=== PATIENT | male | born 1975 | race Caucasian/White ===

== ENCOUNTER 2018-10-05 19:01 | Emergency (ER) | payer BC ==
[~2018-10-05] VITALS: Ht 185.4 cm; Wt 106.6 kg
--- OUTSIDE RECORDS SUMMARY | 2018-10-05 19:04 | XMS REPORT | Clinical Summary ---
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 Active ibuprofen (ADVIL,MOTRIN) Take 200 mg 0 200 MG tablet by mouth every 6 (six) hours as needed for mild pain. Active ondansetron (ZOFRAN, Take 1 tablet 20 tablet 0 HYDROCHLORIDE,) 4 MG (4 mg total) 8 tabletIndications: by mouth Rupture of left distal every 8 biceps tendon, subsequent (eight) hours encounter as needed for nausea or vomiting. 01/02/2018 Discontinued HYDROcodone-acetaminophen Take 1 tablet 30 tablet 0 (NORCO) 5-325 mg per by mouth 8 tabletIndications: Left every 6 (six) upper arm pain hours as needed for moderate pain for up to 7 days. Max Daily Amount: 4 tablets 01/04/2018 HYDROcodone-acetaminophen Take 1 tablet 60 tablet 0 (NORCO) 5-325 mg per by mouth 8 tabletIndications: every 6 (six) Rupture of left distal hours as biceps tendon, subsequent needed for encounter moderate pain for up to 7 days. Max Daily Amount: 4 tablets Active Problems Problem Noted Date Left elbow pain 12/25/2017 Rupture of left distal biceps tendon 12/25/2017 Encounters Care Team Description Date Type Specialty Denis Cross MD Rupture of left distal biceps tendon, subsequent encounter (Primary Dx) 01/11/2018 Office Visit Orthopedic Surgery Denis Cross MD LEFT DISTAL BICEPS TENDON REPAIR 01/02/2018 Surgery General Surgery Presley Sullivan MD 01/02/2018 Anesthesia General Surgery Event Denis Cross MD Preop testing; Left upper arm pain 01/02/2018 Hospital General Surgery Encounter Denis Cross MD Preop testing (Primary Dx) 01/01/2018 Pre-Admit Pre-Admission Testing Testing Appointment Denis Cross MD 01/01/2018 Hospital Radiology Encounter Denis Cross MD Rupture of left distal biceps tendon, subsequent encounter (Primary Dx) 12/28/2017 Office Visit Orthopedic Surgery Denis Cross MD Left upper arm pain 12/27/2017 Hospital Radiology Encounter Denis Cross MD Left upper arm pain (Primary Dx); Left elbow pain; Rupture of left distal biceps tendon, initial encounter 12/25/2017 Office Visit Orthopedic Surgery after 10/04/2017 Family History Medical History Relation Name Comments Heart attack Father No Known Problems Mother Relation Name Status Comments Father Mother Alive Social History Date Tobacco Use Types Packs/Day Years Used Current Every Day Smoker Cigarettes 0.5 2 Smokeless Tobacco: Never Used Tobacco Cessation: Ready to Quit: Yes; Counseling Given: Yes Alcohol Use Drinks/Week oz/Week Comments Yes 7 + Sex Assigned at Date Recorded Not on file Industry Job Start Date Occupation Not on file Not on file Not on file Travel End Travel History Travel Start No recent travel history available. Last Filed Vital Signs Time Taken Vital Sign Reading 01/11/2018 9:58 AM [facility] Blood Pressure 122/80 01/11/2018 9:58 AM [facility] Pulse 80 01/02/2018 9:38 AM [facility] Temperature 36.6 C (97.8 F) 01/02/2018 10:45 AM [facility] Respiratory Rate 18 01/02/2018 10:45 AM [facility] Oxygen Saturation 95% - Inhaled Oxygen - Concentration 01/11/2018 9:58 AM [facility] Weight 104 kg (230 lb) 01/11/2018 9:58 AM [facility] Height 188 cm (6' 2") 01/11/2018 9:58 AM [facility] Body Mass Index 29.53 Plan of Treatment Health Maintenance Due Date Last Done Comments MMR VACCINES (1 of - 1974 Standard series) VARICELLA VACCINES (1 of 1986 2 - 2-dose adolescent series) INFLUENZA VACCINE 06/13/2018 HEPATITIS B VACCINES Aged Out No longer eligible based on patient's age to complete this topic IPV VACCINES Aged Out No longer eligible based on patient's age to complete this topic MENINGOCOCCAL VACCINE Aged Out No longer eligible based on patient's age to complete this topic Implants Device Identifier Shelf Expiration Date Model / Serial / Lot Implanted Type Area Manufactur er [place] [id number] / / [id number] Biocomposite Distal Biceps Kit - IPM Left: Arm ARTHREX [id number] IMPLANT [employer] Implanted: Qty: 1 on 01/02/2018 by Denis Crawford MD Procedures Comments Procedure Name Priority Date/Time Associated Diagnosis XR ELBOW 2 VW LEFT Routine 01/02/2018 9:11 AM [facility] [place] > 1 HOUR Routine 01/02/2018 9:01 AM [facility] SD AN ELECTIVE Routine 01/02/2018 SUPRAGLOTTIC AIRWAY 7:41 AM [facility] Procedure Note - Walt Stovall - 01/02/2018 7:41 AM [facility] Airway Date/Time: 01/02/2018 7:20 AM Performed by: WALT STOVALL Authorized by: PRESLEY SULLIVAN Location: OR Urgency: Elective Difficult Airway: No Resident/C RNA/AA: WALT STOVALL Performed by: resident/C RNA/AA Preoxygena levy with 100% O2: Yes Mask Ventilatio n: Not attempted Final Airway Type: Supraglott ic airway Final LMA: Unique LMA Size: 5 Number of Attempts at Approach: 1 REPAIR, TENDON, BICEPS 01/02/2018 Rupture of left distal 7:15 AM [facility] biceps tendon Case Notes FAX Special Needs ARTHREX, HAND TABLE, SUPINE POSITION, C-ARMAARON WITH ARTHREX NOTIFIED OF CASE 12/29/2017 Jenni rothman message about time change to 0715 12/29/17 [address] [place] AN PERIPHERAL BLOCK Routine 01/02/2018 POST-OP PAIN 7:04 AM [facility] Procedure Note - Presley Sullivan MD - 01/02/2018 7:04 AM [facility] Left supraclavi cular block Performed by: PRESLEY SULLIVAN Authorized by: PRESLEY SULLIVAN Patient Location: Holding area Start Time: 01/02/2018 6:55 AM End Time: 01/02/2018 7:02 AM Reason for Block: at surgeon's request, post-op pain management Staff: Anesthesio logist: PRESLEY SULLIVAN Preprocedu re: patient identified , IV checked, site and side verified, risks and benefits discussed, procedure verified, surgical consent complete, patient position confirmed, monitors and equipment checked, pre-op evaluation complete and site marked Time Out Performed: 01/02/2018 6:55 AM Peripheral Nerve Block: Patient Position: Supine Prep: ChloraPrep Monitoring : Blood pressure monitoring , continuous pulse oximetry and heart rate Block Type: Brachial plexus and supraclavi cular Laterality : Left Injection Technique: Single injection Procedures : ultrasound guided and nerve stimulator Local Infiltrati on (See MAR for details): Ropivacain e Loss of Twitch: 0.6 mA Needle: Needle Type: SonoPlex Needle Gauge: 22 G Needle Length: 2 in Assessment : Injection Assessment : Visualized needle/loc al anesthetic surroundin g nerve, visualized pertinent vascular structures and nerves, needle tip visualized at all times during injection of medication , intermitte nt aspiration during local anesthetic administra tion and no symptoms of intraneura l/intraven ous injection Paresthesi a Pain: None Heart Rate Change: No Slow Fractionat ed Injection: Yes Block outcome: No apparent complicati ons, patient comfortabl e and patient tolerated procedure well Notes: Versed 2 mg and Fentanyl 100 mcg IV for nerve block XR CHEST 2 VW Routine 01/01/2018 Preop testing 4:22 PM [facility] ECG 12-LEAD Routine 01/01/2018 Preop testing 4:08 PM [facility] ZZESTIMATED GFR Routine 01/01/2018 3:37 PM [facility] URINALYSIS SCREEN AND Routine 01/01/2018 Preop testing MICROSCOPY, WITH REFLEX 3:37 PM [facility] TO CULTURE BASIC METABOLIC PANEL Routine 01/01/2018 Preop testing 3:37 PM [facility] CBC HEMOGRAM Routine 01/01/2018 Preop testing 3:37 PM [facility] MRI UPPER EXTREMITY JOINT Routine 12/27/2017 Left upper arm pain WO CONTRAST LEFT 6:29 PM [facility] after 10/04/2017 Results * XR Elbow 2 Vw Left (01/02/2018 9:11 AM [facility]) Narrative Performed At EXAMINATION:XR ELBOW 2 VW LEFT [facility] CLINICAL HISTORY:Pain COMPARISON:None. IMPRESSION: Intraoperative views of the left elbow are obtained. Patient is undergoing surgical repair a ruptured biceps tendon. Fixation screws in place Bony Structures are within normal limits [id number] Procedure Note Hm Interface, Radiology Results Incoming - 01/02/2018 9:16 AM [facility] EXAMINATION: XR ELBOW 2 VW LEFT CLINICAL HISTORY: Pain COMPARISON: None. IMPRESSION: Intraoperative views of the left elbow are obtained. Patient is undergoing surgical repair a ruptured biceps tendon. Fixation screws in place Bony Structures are within normal limits [id number] Performing Organization Address [facility] Phone Number [facility] [address] [place] [address] * OR [place] > I Hour (01/02/2018 9:01 AM [facility]) Narrative Performed At EXAMINATION:OR FL 1 HOUR HM [facility] C-arm fluoroscopy was requested in OR.FLUORO TIME 0:32 IMPRESSION: Separate operative report will be issued by the physician performing the procedure. [id number] Procedure Note Interface, Radiology Results Incoming - 01/02/2018 9:27 AM [facility] EXAMINATION: OR FL 1 HOUR C-arm fluoroscopy was requested in OR. FLUORO TIME 0:32 IMPRESSION: Separate operative report will be issued by the physician performing the procedure. [id number] Performing Organization Address [facility] Phone Number [facility] [address] [place] [address] * XR Chest 2 Vw (01/01/2018 4:22 PM [facility]) Narrative Performed At EXAMINATION:XR CHEST 2 VW HM [facility] CLINICAL HISTORY:Z01.818 Encounter for other preprocedural examination, preop COMPARISON:None. IMPRESSION: Frontal and lateral views reveal a normal cardiomediastinal silhouette. Lungs are clear. Pleural margins are sharp. The remainder of the examination is unremarkable. [id number] Procedure Note Interface, Radiology Results Incoming - 01/01/2018 4:35 PM [facility] EXAMINATION: XR CHEST 2 VW CLINICAL HISTORY: Z01.818 Encounter for other preprocedural examination, preop COMPARISON: None. IMPRESSION: Frontal and lateral views reveal a normal cardiomediastinal silhouette. Lungs are clear. Pleural margins are sharp. The remainder of the examination is unremarkable. [id number] Performing Organization Address [facility] Phone Number [facility] [address] [place] [address] * ECG 12 lead (01/01/2018 4:08 PM [facility]) Ventricular rate 68 [facility] Atrial rate 68 [facility] SD interval 154 [facility] QRSD interval 98 [facility] QT interval 380 [facility] QTC interval 404 [facility] P axis 1 44 [facility] QRS axis 1 59 [facility] T wave axis 32 [facility] EKG impression Normal sinus rhythm-Normal [facility] MUSE ECG-No previous ECGs available- Performing Organization Address [facility] Phone Number [facility] [address] [place] [address] * Urinalysis screen and microscopy, with reflex to culture (01/01/2018 3:37 PM [facility]) Specimen site Clean catch [facility] DEPARTMENT OF PATHOLOGY AND GENOMIC MEDICINE Color, UA Yellow [facility] DEPARTMENT OF PATHOLOGY AND GENOMIC MEDICINE Appearance, UA Clear [facility] DEPARTMENT OF PATHOLOGY AND GENOMIC MEDICINE Specific gravity, UA 1.017 1.001 - 1.035 [facility] DEPARTMENT OF PATHOLOGY AND GENOMIC MEDICINE pH, UA 6.0 5.0 - 8.5 [facility] DEPARTMENT OF PATHOLOGY AND GENOMIC MEDICINE Protein, UA Negative Negative [facility] DEPARTMENT OF PATHOLOGY AND GENOMIC MEDICINE Glucose, UA Negative Negative [facility] DEPARTMENT OF PATHOLOGY AND GENOMIC MEDICINE Ketones, UA Negative Negative [facility] DEPARTMENT OF PATHOLOGY AND GENOMIC MEDICINE Bilirubin, UA Negative Negative [facility] DEPARTMENT OF PATHOLOGY AND GENOMIC MEDICINE Blood, UA Moderate (A) Negative [facility] DEPARTMENT OF PATHOLOGY AND GENOMIC MEDICINE Nitrite, UA Negative Negative [facility] DEPARTMENT OF PATHOLOGY AND GENOMIC MEDICINE Urobilinogen, UA Negative <2.0 [facility] DEPARTMENT OF PATHOLOGY AND GENOMIC MEDICINE Leukocyte esterase, UA Negative Negative [facility] DEPARTMENT OF PATHOLOGY AND GENOMIC MEDICINE WBC, UA None seen 0 - 1 /HPF [facility] DEPARTMENT OF PATHOLOGY AND GENOMIC MEDICINE RBC, UA 0-5 0 - 1 /HPF [facility] DEPARTMENT OF PATHOLOGY AND GENOMIC MEDICINE Bacteria, UA Trace None seen [facility] DEPARTMENT OF PATHOLOGY AND GENOMIC MEDICINE Yeast, UA None seen [facility] DEPARTMENT OF PATHOLOGY AND GENOMIC MEDICINE Yeast with pseudohyphae, None seen [facility] PATHOLOGY AND GENOMIC MEDICINE Specimen Urine Performing Organization Address [facility] Phone Number [address] [place] [phone] PATHOLOGY AND GENOMIC MEDICINE * Estimated GFR (01/01/2018 3:37 PM [facility]) GFR Non Af Amer 73 mL/min/1.73 m2 [facility] DEPARTMENT OF PATHOLOGY AND GENOMIC MEDICINE GFR Af Amer 88 mL/min/1.73 m2 [facility] DEPARTMENT OF Comment: PATHOLOGY AND Chronic kidney disease: <60 GENOMIC MEDICINE mL/min/1.73m2 Kidney failure: <15 mL/min/1.73m2 The estimated GFR is calculated from the IDMS-traceable Modification of Diet in Renal Disease Equation. The accuracy of the calculation is poor when the creatinine is normal. Calculated values >90 mL/min/1.73m2 are not reported. This equation has not been validated in children (<18 years), women, the elderly (>70 years), or ethnic groups other than Caucasians and Americans. Specimen Plasma specimen Performing Organization Address [facility] Phone Number [address] [place] [address] PATHOLOGY AND [facility] * CBC hemogram (01/01/2018 3:37 PM [facility]) WBC 6.03 4.50 - 11.00 k/uL [facility] DEPARTMENT OF PATHOLOGY AND GENOMIC MEDICINE RBC 5.41 4.40 - 6.00 m/uL [facility] DEPARTMENT OF PATHOLOGY AND GENOMIC MEDICINE HGB 15.7 14.0 - 18.0 g/dL [facility] DEPARTMENT OF PATHOLOGY AND GENOMIC MEDICINE HCT 47.3 41.0 - 51.0 % [facility] DEPARTMENT OF PATHOLOGY AND GENOMIC MEDICINE MCV 87.4 82.0 - 100.0 fL [facility] DEPARTMENT OF PATHOLOGY AND GENOMIC MEDICINE MCH 29.0 27.0 - 34.0 pg [facility] DEPARTMENT OF PATHOLOGY AND GENOMIC MEDICINE MCHC 33.2 31.0 - 37.0 g/dL [facility] DEPARTMENT OF PATHOLOGY AND GENOMIC MEDICINE RDW - SD 45.0 37.0 - 55.0 fL [facility] DEPARTMENT OF PATHOLOGY AND GENOMIC MEDICINE MPV 11.5 8.8 - 13.2 fL [facility] DEPARTMENT OF PATHOLOGY AND GENOMIC MEDICINE Platelet count 253 150 - 400 k/uL [facility] DEPARTMENT OF PATHOLOGY AND GENOMIC MEDICINE Nucleated RBC 0.00 /100 WBC [facility] PATHOLOGY AND [facility] MEDICINE Specimen Blood Performing Organization Address [facility]/Zipcode Phone Number [facility] [address] [place] [address] PATHOLOGY AND [facility] * Basic metabolic panel (01/01/2018 3:37 PM [facility]) Sodium 141 135 - 148 mEq/L [facility] DEPARTMENT OF PATHOLOGY AND [facility] MEDICINE Potassium 4.3 3.5 - 5.0 mEq/L [facility] DEPARTMENT OF PATHOLOGY AND [facility] MEDICINE Chloride 101 98 - 112 mEq/L [facility] DEPARTMENT OF PATHOLOGY AND GENOMIC MEDICINE CO2 29 24 - 31 mEq/L [facility] DEPARTMENT OF PATHOLOGY AND [facility] MEDICINE Anion gap 11 7 - 15 mEq/L [facility] DEPARTMENT OF Comment: PATHOLOGY AND Starting from February [facility] , anion gap calculation no longer incorporates potassium. Please note the change. BUN 14 6 - 20 mg/dL [facility] DEPARTMENT OF PATHOLOGY AND [facility] MEDICINE Creatinine 1.1 0.7 - 1.2 mg/dL [facility] DEPARTMENT OF PATHOLOGY AND [facility] MEDICINE Glucose 85 65 - 99 mg/dL [facility] OF PATHOLOGY AND [facility] MEDICINE Calcium 9.5 8.3 - 10.2 mg/dL [facility] OF PATHOLOGY AND [facility] MEDICINE Specimen Plasma specimen Performing Organization Address [facility] Phone Number [place] [address] [place] [phone] PATHOLOGY [facility] * MRI Upper Extremity Joint Wo Contrast Left (12/27/2017 6:29 PM [facility]) Narrative Performed At EXAMINATION:MRI UPPER EXTREMITY JOINT WO CONTRAST LEFT [facility] CLINICAL HISTORY:M79.622 Pain in left upper arm, pain COMPARISON:None. FINDINGS: Triceps muscle and tendon: The triceps muscle appears intact to the limits of visualization as does the tendon. Biceps brachii and brachialis muscle and tendon: There is a complete tear of the biceps tendon which isavulsed off the radial tubercle and retracted into the area of the antecubital fossa proximally with marked thickening and deformity of the remaining tendon. The girth of the torn tendonis approximately 1 cm in diameter. It is attenuation of the brachialis muscle although there are intact fibers this is consistent with a grade 1 tear of the brachialis. Radial collateral ligament, common extensor tendon demonstrates no high-grade tear although some fraying and increased signal at the common extensor tendon insertion is present. There is also mild fraying of the radial collateral ligament at its humeral attachment although this is mostly intact. The lateral ulnar collateral ligament is poorly visualized at its humeral attachment. Ulnar collateral ligament, common flexor tendon: The common flexor tendon appears intact. Osseous structures: There is mild arthritic change with small osteophytes involving the capitellum as well as the coronoid process of the ulna and olecranon process of the ulna there is no fracture visualized. Cartilaginous surfaces appear unremarkable with mild diffuse chondromalacia. Miscellaneous findings: There is a physiologic volume of joint fluid. No loose bodies are identified. IMPRESSION: 1. Complete tear of the biceps tendon from its radial tubercle attachment with retraction of the tendon into the antecubital fossa with increased girth of the stump of the tendon in the distal arm measuring approximately 1 cm in diameter and marked redundancy of the tendon. There is associated moderate soft tissue swelling 2. Attenuation of the tendon of the brachialis muscle [id number] Procedure Note Hm Interface, Radiology Results Incoming - 12/27/2017 6:51 PM [facility] EXAMINATION: MRI UPPER EXTREMITY JOINT WO CONTRAST LEFT CLINICAL HISTORY: M79.622 Pain in left upper arm, pain COMPARISON: None. FINDINGS: Triceps muscle and tendon: The triceps muscle appears intact to the limits of visualization as does the tendon. Biceps brachii and brachialis muscle and tendon: There is a complete tear of the biceps tendon which is avulsed off the radial tubercle and retracted into the area of the antecubital fossa proximally with marked thickening and deformity of the remaining tendon. The girth of the torn tendon is approximately 1 cm in diameter. It is attenuation of the brachialis muscle although there are intact fibers this is consistent with a grade 1 tear of the brachialis. Radial collateral ligament, common extensor tendon demonstrates no high-grade tear although some fraying and increased signal at the common extensor tendon insertion is present. There is also mild fraying of the radial collateral ligament at its humeral attachment although this is mostly intact. The lateral ulnar collateral ligament is poorly visualized at its humeral attachment. Ulnar collateral ligament, common flexor tendon: The common flexor tendon appears intact. Osseous structures: There is mild arthritic change with small osteophytes involving the capitellum as well as the coronoid process of the ulna and olecranon process of the ulna there is no fracture visualized. Cartilaginous surfaces appear unremarkable with mild diffuse chondromalacia. Miscellaneous findings: There is a physiologic volume of joint fluid. No loose bodies are identified. IMPRESSION: 1. Complete tear of the biceps tendon from its radial tubercle attachment with retraction of the tendon into the antecubital fossa with increased girth of the stump of the tendon in the distal arm measuring approximately 1 cm in diameter and marked redundancy of the tendon. There is associated moderate soft tissue swelling 2. Attenuation of the tendon of the brachialis muscle [id number] Performing Organization Address City/State/Zipcode Phone Number [facility] [address] [place] [address] after 10/04/2017 Insurance Payer Benefit Subscriber ID Type Phone Address Plan / Group BCBS BCBS xxxxxxxxxxxx PPO CHOICE PPO/FARHAD WOO PPO Advance Directives Patient has advance care planning documents on file. For more information, aleah child contact: Baldev Chanel [address] [place] [address]
[2018-10-05] MEDS ORDERED: KETOROLAC TROME10 MG PO (19:59)
== END 2018-10-05 21:00 | disposition home or self-care (01) ==
LOC: FSED 19:01
DX: I88.8 Other nonspecific lymphadenitis (principal)
CPT/HCPCS: 81003; 99282